=== PATIENT | female | born 1985 | race Caucasian/White ===

== ENCOUNTER 2016-07-04 09:53 | Emergency (ER) | payer OTHER ==
[~2016-07-04 09:53] MED LIST: COLACE 100MG C100 MG PO; TRANDATE 100 M100 MG PO
[2016-07-04 11:03] LABS: HEMOGLOBIN 13.7 gm/dl (12.3-15.3); RED BLOOD COUNT 4.49 M/UL (4.00-5.10); WHITE BLOOD COUNT 6.5 K/UL (4.5-11.0)
[2016-07-04 11:34] LABS: BUN/CREATININE RATIO 24 (0-10)
== END 2016-07-04 12:20 | disposition home or self-care (01) ==
LOC: ER1 09:53
PROVIDERS: Internal Medicine
DX: R07.89 Other chest pain (principal); R06.02 Shortness of breath; E87.6 Hypokalemia; I10 Essential (primary) hypertension; Z88.0 Allergy status to penicillin; F17.210 Nicotine dependence, cigarettes, uncomplicated
CPT/HCPCS: 36415; 80053; 82550; 82553; 83874; 84484; 85027; 85379; 93005; 93970; 99285; Q9963

== ENCOUNTER 2020-05-18 01:56 | Emergency (ER) | payer OTHER ==
[~2020-05-18 01:56] MED LIST changes: +CYCLOBENZAPRINE10 MG PO; +IBUPROFEN600 MG PO; +LORTAB 5-325 M1 EACH PO; +PREDNISONE50 MG PO; +PRENATABS FA T1 EACH PO
[2020-05-18] MEDS ORDERED: ENDOCET 5-3251 EACH PO (03:14)
== END 2020-05-18 04:03 | disposition home or self-care (01) ==
LOC: ER1 01:56
DX: S62.613A Displaced fracture of proximal phalanx of left middle finger, initial encounter for closed fracture (principal); M25.512 Pain in left shoulder; M79.602 Pain in left arm; R07.81 Pleurodynia; W01.0XXA Fall on same level from slipping, tripping and stumbling without subsequent striking against object, initial encounter; Y92.009 Unspecified place in unspecified non-institutional (private) residence as the place of occurrence of the external cause
CPT/HCPCS: 29130; 71046; 73030; 73060; 73130; 99283

== ENCOUNTER 2021-10-18 05:07 | Emergency (ER) | payer OTHER ==
[~2021-10-18 05:07] MED LIST changes: +ENDOCET 5-3251 EACH PO
[2021-10-18 05:45] LABS: RED BLOOD COUNT 4.33 M/UL (4.00-5.10); WHITE BLOOD COUNT 4.6 K/UL (4.5-11.0)
[2021-10-18 05:53] LABS: BUN/CREATININE RATIO 23 (0-10)
== END 2021-10-18 08:08 | disposition home or self-care (01) ==
LOC: ER1 05:07
PROVIDERS: Physician Assistant
DX: T24.201A Burn of second degree of unspecified site of right lower limb, except ankle and foot, initial encounter (principal); M54.9 Dorsalgia, unspecified; G89.29 Other chronic pain; Z87.442 Personal history of urinary calculi; Z88.0 Allergy status to penicillin; F17.210 Nicotine dependence, cigarettes, uncomplicated; Z51.81 Encounter for therapeutic drug level monitoring; X08.8XXA Exposure to other specified smoke, fire and flames, initial encounter; Y92.009 Unspecified place in unspecified non-institutional (private) residence as the place of occurrence of the external cause
CPT/HCPCS: 16020; 80053; 83605; 83735; 84100; 85025; 85610; 85652; 85730; 86140; 87040; 96365; 96366; 96375; 99283; J1885; J3370; J7030